=== PATIENT | male | born 1950 | race Caucasian/White ===

== ENCOUNTER → 2016-10-05 | Outpatient (CLI) | payer MEDICARE, OTHER ==
--- NOTE | ~2016-10-05 | MR113 ---
[facility] A Service of [facility] & [facility] RADIOLOGY TEXT RESULTS PATIENT: GIUSEPPE CARMONA LOCATION: [facility] : 46 UNIT #: [id number] AGE: [address]: Dominic Dwyer MD SEX: M ORDER DR: [id number] [address] [address] [id number] O MR#: [id number] Acc #: [id number] NAME: GIUSEPPE CARMONA : 1950 SEX: M STUDY DATE/TIME: 10/05/2016 8:48 UNIT: [facility] ROOM: STUDY DESCRIPTION: MR Lumbar Wo Contrast Attending Physician: Dominic Dwyer M.D. Referring Physician: Dominic Dwyer M.D. Ordering Physician: Dominic Dwyer M.D. Primary Care Physician: Dominic Dwyer M.D. MRI CENTER REPORT This report is preliminary unless electronic signature is present. EXAM MRI of the lumbar spine without contrast dated 10/05/2016. COMPARISON Plain films lumbar spine dated 05/22/2010. HISTORY Increasing low back pain which radiates into the left lower extremity mostly for the last 3-4 years. History of prostate cancer. Patient refused contrast. FINDINGS Multisequence multiplanar imaging of the lumbar spine was obtained without contrast. 3.5 mm mild retrolisthesis of L5 is seen with respect to L4. Endplate Schmorl nodes are at multiple levels. Conus terminates at inferior L1. Signal of conus and cauda equina are within normal limits. Pre and paravertebral soft tissues do not demonstrate any significant abnormality. 1.9 cm increased T2-signal lesion is in the right posterolateral aspect of the upper to mid right kidney, incompletely characterized on the current study. L1-2: Concentric disc bulge with minimal bilateral facet change. No significant neural foraminal narrowing or canal stenosis. L2-3: Concentric disc bulge with slight asymmetrical prominence in bilateral foraminal to extraforaminal regions suggestive of superimposed broad-based protrusions. Mild inferior bilateral neural foraminal narrowing is seen. There is borderline size to mild canal stenosis. L3-4: Disc osteophyte complex is noted which is asymmetrically prominent in bilateral foraminal to extraforaminal regions particularly in the right. Mild bilateral facet hypertrophic changes are noted with moderate canal stenosis. Aaly-cm-wdkgeekk bilateral neural foraminal narrowing is STS. [facility] A Service of [facility] & [facility] RADIOLOGY TEXT RESULTS PATIENT: GIUSEPPE CARMONA LOCATION: [facility] : 46 UNIT #: [id number] AGE: [address]: Dominic Dwyer MD SEX: M ORDER DR: seen with mild bilateral lateral recess encroachment. L4-5: Disc osteophyte complex with very severe left and severe right facet hypertrophic changes. Bilateral ligamentum flavum thickening is noted with severe canal stenosis. Moderate left and mild right lateral recess stenosis are noted with moderate right and [id number]-xynipa left neural foraminal narrowing. Relatively worst level. L5-S1: Concentric disc bulge with severe bilateral facet hypertrophic changes and joint fluid. Borderline-sized canal is seen with moderate to severe bilateral neural foraminal narrowing. In the anteromedial aspect of the left facet joint there is a 5 mm increased T2-signal lesion but most suggestive of a synovial cyst/inflammatory tissue. It contributes to moderate left lateral recess stenosis and impingement of left S1 nerve root. There is also moderate right lateral recess stenosis with [id number]-vz-ohmptb bilateral neural foraminal narrowing. IMPRESSION 1. Degenerative changes are at multiple levels, worse at L4-5 with severe canal stenosis. Bilateral lateral recess stenosis and neural foraminal narrowing are noted with severe bilateral facet hypertrophic changes. 2. Degenerative changes are also noted at L5-S1, severe involving bilateral facet joints particularly the left. There is an associated 5 mm increased T2-signal lesion in the anteromedial aspect of the left facet joint impinging on the left S1 nerve root in the left lateral recess. Right lateral recess stenosis and bilateral neural foraminal narrowing are also seen at L5-S1. 3. Degenerative changes are also relatively worse at L3-4 as described above. Dictated by... Sonu Dyer M.D. THIS IS AN ELECTRONICALLY VERIFIED REPORT Sonu Dyer M.D. at 10/08/2016 3:34 PM CPR/bd TD: 10/07/2016 13:36 JOB #: [id number] MRI CENTER REPORT Page 1 of 1
== END | disposition home or self-care (01) ==
LOC: SMRI 08:19
DX: M47.26 Other spondylosis with radiculopathy, lumbar region (principal); M47.27 Other spondylosis with radiculopathy, lumbosacral region; R20.8 Other disturbances of skin sensation; C61 Malignant neoplasm of prostate; M48.06 Spinal stenosis, lumbar region; M99.83 Other biomechanical lesions of lumbar region
CPT/HCPCS: 72148